=== PATIENT | female | born 1955 ===

== ENCOUNTER 2023-03-29 06:00 | Day surgery (SDC) | payer OTHER ==
[~2023-03-29] VITALS: Ht 160 cm; Wt 66.7 kg
[~2023-03-29 06:00] MED LIST: BUSPIRONE HCL5 MG PO; EVISTA60 MG PO; PROBIOTIC1 EAC6 PO; ROSUVASTATIN CAL5 MG PO; SYNTHROID88 MCG PO; XANAX1 MG PO; ZYRTEC10 M3 PO
[2023-03-29] MEDS ORDERED: OXYC1TAB9 PO (10:19)
== END 2023-03-29 14:25 | disposition home or self-care (01) ==
LOC: CIR.AMB 06:00
PROVIDERS: ATTEND Surgery
DX: K62.5 Hemorrhage of anus and rectum (principal); K64.2 Third degree hemorrhoids; K64.4 Residual hemorrhoidal skin tags; K64.8 Other hemorrhoids; Z20.822 Contact with and (suspected) exposure to COVID-19; I10 Essential (primary) hypertension; Z91.011 Allergy to milk products; Z91.013 Allergy to seafood